=== PATIENT | female | born 1985 | race Two or more races ===

== ENCOUNTER 2017-12-09 22:55 | Emergency (ER) | payer OTHER ==
[~2017-12-09] VITALS: Ht 157.5 cm; Wt 110.7 kg
[2017-12-09] MEDS ORDERED: METHYLDOPA (250MG) 250 MG TABLET PO STA (23:18)
[2017-12-09] MEDS ORDERED: METHYLDOPA (250MG) 250 MG TABLET ONE (23:36)
[2017-12-10 00:10] VITALS: BP 177/100
== END 2017-12-10 00:25 ==
LOC: ER 23:00
DX: O13.1 Gestational [pregnancy-induced] hypertension without significant proteinuria, first trimester (principal); Z3A.12 12 weeks gestation of pregnancy; Z88.0 Allergy status to penicillin
CPT/HCPCS: 99283; A4606; Z7610